=== PATIENT | male | born 2000 | race Caucasian/White ===

== ENCOUNTER 2021-08-05 17:01 | Inpatient (IN) | payer OTHER, BC ==
[2021-08-05] MEDS ORDERED: Ondansetron ODT 4 MG TAB PO PRN (19:28)
[2021-08-05] MEDS ORDERED: Ondansetron PF 4 MG/2 ML Vial IVP PRN (19:28)
[2021-08-05] MEDS ORDERED: Dextrose 5% in Water 1,000 ML IV PRN (19:28)
[2021-08-05] MEDS ORDERED: hydrALAZINE 20 MG/ML VIAL SLOW IVP PRN (19:28)
[2021-08-05] MEDS ORDERED: Dextrose 50% Abboject 50 ML SYRINGE SLOW IVP PRN (19:28)
[2021-08-05] MEDS ORDERED: Morphine 4 MG/ML VIAL SLOW IVP SCH (19:30)
[2021-08-05] MEDS ORDERED: Cyclobenzaprine 10 MG TAB PO PRN (19:32)
[2021-08-05] MEDS ORDERED: traMADol HCl 50 MG TAB PO PRN (19:32)
[2021-08-05] MEDS ORDERED: Ketorolac Tromethamine 30 MG/ML VIAL IVP SCH (20:30)
[2021-08-05 20:39] LABS: SARS-CoV-2 NAA Rapid Test Not Detected (NotDetected)
[2021-08-05] MEDS: Famotidine 20 MG TAB PO SCH (20:53)
[2021-08-05] MEDS: Sodium Chloride 0.9% 1,000 ML IV SCH (20:55)
[2021-08-05] MEDS: traMADol HCl 50 MG TAB PO PRN (20:58)
[2021-08-05] MEDS: ceFAZolin 1 GM/D5W 1 GM in Premix Bag 1 BAG IVPB SCH (21:50)
[2021-08-05 21:55] VITALS: BMI 27.4
[2021-08-05] MEDS ORDERED: CEFAZOLIN 1 GM VIAL SLOW IVP SCH (22:00)
[2021-08-05] MEDS: Acetaminophen 325 MG TAB PO SCH (23:59)
[2021-08-06] MEDS: Morphine 4 MG/ML VIAL SLOW IVP PRN ×3 (00:19→11:37)
[2021-08-06] MEDS ORDERED: Ibuprofen 200 MG TAB PO PRN (01:00)
[2021-08-06 04:32] LABS: #Eosinphils 0.2 thou/uL (0.0-0.7); #Lymphocytes 1.9 thou/uL (1.20-3.40); #Monocytes 0.8 thou/uL (0.11-0.59); #Neutrophils 5.7 thou/uL (1.40-6.50); %Basophils 0.4 % (0.0-1.0); %Eosinophils 1.8 % (0.0-10.0); %Lymphocytes 22.3 % (28.0-48.0); %Monocytes 9.4 % (0.0-4.0); %Neutrophils 66.1 % (31.0-61.0); Hemoglobin 13.7 g/dL (14.0-18.0); Mean Corpuscular HGB CONC 35.9 g/dL (32.0-36.0); Mean Platelet Volume 7.7 fL (7.4-10.4); Platelet Count 173 thou/uL (130-400); RBC Distribution Width 11.6 % (11.5-14.5); Red Blood Cell (RBC) Count 4.15 mill/uL (4.00-5.20); White Blood Cell (WBC) Count 8.6 thou/uL (4.8-10.8)
[2021-08-06] MEDS: Acetaminophen 325 MG TAB PO SCH ×3 (05:11→17:15)
[2021-08-06] MEDS: ceFAZolin 1 GM/D5W 1 GM in Premix Bag 1 BAG IVPB SCH (05:11)
[2021-08-06 05:33] LABS: Anion Gap 12 mmol/L (10-20); BUN (Urea Nitrogen) 15 mg/dL (8.9-20.6); Calc. Creatinine Clearance 140 mL/min (70-130); Calcium 9.1 mg/dL (7.8-10.44); Carbon Dioxide 24 mmol/L (22-29); Chloride 104 mmol/L (98-107); Glucose 98 mg/dL (70-105); Potassium 3.6 mmol/L (3.5-5.1); Sodium 136 mmol/L (136-145)
[2021-08-06] MEDS: Famotidine 20 MG TAB PO SCH (08:21)
[2021-08-06] MEDS ORDERED: CEFAZOLIN 2 GM, Admixture Fee 1 EACH in Sodium Chloride 0.9% 100 ML IVPB SCH ×2 (11:00→22:00)
[2021-08-06 11:16] VITALS: BP 170/73; TEMP 97.8
[2021-08-06] MEDS ORDERED: ceFAZolin Sodium (SDC) 2 GM/100 ML BAG ONE (12:49)
[2021-08-06] MEDS ORDERED: Midazolam HCl 2 mg/2 ml Vial ONE (12:49)
[2021-08-06] MEDS ORDERED: Dexmedetomidine 200 MCG/2 ML VIAL ONE (13:33)
[2021-08-06] MEDS ORDERED: HYDROmorphone 0.5 MG/0.5 ML SYRINGE ONE (13:34)
[2021-08-06] MEDS ORDERED: Fentanyl 100 MCG/2 ML VIAL ONE ×3 (13:37→16:10)
[2021-08-06] MEDS ORDERED: PHENYLEPHRINE-NS 100 MCG/ML 10 ML SYRINGE ONE (13:53)
[2021-08-06] MEDS ORDERED: Dexamethasone 20 MG/5 ML VIAL ONE (13:53)
[2021-08-06] MEDS ORDERED: ePHEDrine 50 MG/ML VIAL ONE (13:53)
[2021-08-06] MEDS ORDERED: Ondansetron PF 4 MG/2 ML Vial ONE (13:53)
[2021-08-06] MEDS ORDERED: PROPOFOL 200 MG/20 ML VIAL ONE (13:53)
[2021-08-06] MEDS ORDERED: Lidocaine 1% PF 5 ML VIAL ONE (13:53)
[2021-08-06] MEDS ORDERED: Ketorolac Tromethamine 30 MG/ML VIAL ONE (13:53)
[2021-08-06] MEDS: Sodium Chloride 0.9% 1,000 ML IV SCH (14:29)
[2021-08-06] MEDS ORDERED: Bupivacaine PF 0.5% 30 ML VIAL ONE (14:59)
[2021-08-06] MEDS ORDERED: EPINEPHrine 1 MG/ML AMP ONE (14:59)
[2021-08-06] MEDS ORDERED: HYDROmorphone 2 MG/ML VIAL SLOW IVP PRN (15:40)
[2021-08-06] MEDS ORDERED: Ondansetron HCl/PF 4 MG/2 ML Vial IVP PRN (15:40)
[2021-08-06] MEDS ORDERED: Promethazine HCl 25 MG/ML VIAL IM PRN (15:40)
[2021-08-06] MEDS ORDERED: Promethazine HCl 25 MG/ML VIAL IVPB PRN (15:40)
[2021-08-06] MEDS: traMADol HCl 50 MG TAB PO PRN (17:17)
[2021-08-06] MEDS ORDERED: diphenhydrAMINE 25 MG CAP PO SCH (18:30)
== END 2021-08-06 18:56 | disposition home or self-care (01) | DRG 494 ==
LOC: SURG A 18:41
PROVIDERS: ADMIT Specialist; ATTEND Specialist
PROC: 0QSG04Z Reposition Right Tibia with Internal Fixation Device, Open Approach (ICD-10-PCS; principal; 2021-08-06)
PROC: 0QSJ04Z Reposition Right Fibula with Internal Fixation Device, Open Approach (ICD-10-PCS; 2021-08-06)
DX: S82.51XA Displaced fracture of medial malleolus of right tibia, initial encounter for closed fracture (principal); S82.491A Other fracture of shaft of right fibula, initial encounter for closed fracture; Z20.822 Contact with and (suspected) exposure to COVID-19; F17.290 Nicotine dependence, other tobacco product, uncomplicated; F12.10 Cannabis abuse, uncomplicated; V27.4XXA Motorcycle driver injured in collision with fixed or stationary object in traffic accident, initial encounter; Y92.410 Unspecified street and highway as the place of occurrence of the external cause
CPT/HCPCS: 36415; 76000; 80048; 85025; C1713; J0171; J0690; J1170; J1885; J2250; J2270; J2405; J3010; J7050; S0020; U0002